=== PATIENT | female | born 1955 | race Two or more races ===

== ENCOUNTER 2020-04-24 12:03 | Inpatient (IN) | payer MEDICARE, MEDICAID ==
[~2020-04-24] VITALS: Ht 160 cm; Wt 42.5 kg
--- NOTE | 2020-04-24 13:16 | NUR ---
Pt's family here from [place] looking for pt. After discussion with for Covid symptoms he was cleared to visit w/ for ~ 10 minutes before returning home.
--- NOTE | 2020-04-24 13:37 | NUR ---
, Cesar [phone]. English speaking only.
[2020-04-24] MEDS ORDERED: ipratropium/albuterol 3ml nebule NEB ONE (13:55)
[2020-04-24 14:18] LABS: BASOPHILS % (AUTO) 0.5 % (0-1); EOSINOPHILS % (AUTO) 0.2 % (0-6); HEMATOCRIT 33.8 % (35.0-45.0); HEMOGLOBIN 11.6 g/dl (12.0-16.0); LYMPHOCYTES # (AUTO) 0.4 X10'3 (1.1-4.8); LYMPHOCYTES % (AUTO) 9.8 % (21-51); MEAN CORPUSCULAR HEMOGLOBIN 32.3 PG (27.0-31.0); MEAN CORPUSCULAR HGB CONC 34.2 g/dL (33.0-36.5); MEAN CORPUSCULAR VOLUME 94.2 FL (78-98); MEAN PLATELET VOLUME 6.4 FL (7.4-10.4); MONOCYTES # (AUTO) 0.4 X10'3 (0-0.9); NEUTROPHILS # (AUTO) 2.9 X10'3 (1.8-7.7); NEUTROPHILS % (AUTO) 79.5 % (42-75); PLATELET COUNT 143 X10'3 (140-440); RED BLOOD COUNT 3.59 X10'6 (4.20-5.60); WHITE BLOOD COUNT 3.7 X10'3 (4.5-11.0)
[2020-04-24 14:32] LABS: ALANINE AMINOTRANSFERASE 27 U/L (12-78); ALBUMIN 2.6 G/DL (3.4-5.0); ALBUMIN/GLOBULIN RATIO 0.8 (1.1-1.5); ALKALINE PHOSPHATASE 89 IU/L (46-116); ANION GAP 10 (8-16); ASPARTATE AMINO TRANSFERASE 94 U/L (10-37); BILIRUBIN,TOTAL 0.7 MG/DL (0.1-1.0); BLOOD UREA NITROGEN 9 MG/DL (7-18); BUN/CREATININE RATIO 13.8 (6.6-38.0); CALCIUM 7.9 MG/DL (8.5-10.1); CHLORIDE 86 MMOL/L (99-107); CREATININE 0.65 MG/DL (0.40-0.90); GLUCOSE 98 MG/DL (70-104); POTASSIUM 4.1 MMOL/L (3.5-5.1); TOTAL CARBON DIOXIDE 22.9 MMOL/L (24-32); TOTAL PROTEIN 5.9 G/DL (6.4-8.2); eGFR > 90 ML/MIN
[2020-04-24 14:34] LABS: SODIUM 119 MMOL/L (135-145)
[2020-04-24] MEDS ORDERED: magnesium 2GM in 50ml NS 50 ML IV PRN (15:55)
[2020-04-24] MEDS ORDERED: ipratropium/albuterol 3ml nebule NEB PRN (15:55)
[2020-04-24] MEDS ORDERED: dextrose 50%-water 50ml dispensing syringe IV PRN ×2 (15:55)
[2020-04-24] MEDS ORDERED: MESSAGE TO PHARMACY PO ONE (15:55)
[2020-04-24] MEDS ORDERED: potassium CL 10mEq/100ml bag 100 ML IV PRN ×2 (15:55)
[2020-04-24] MEDS ORDERED: ondansetron/PF 4mg/2ml inj IV PRN (15:55)
[2020-04-24] MEDS ORDERED: magnesium hydroxide 30ml (MOM) UD suspension PO PRN (15:55)
[2020-04-24] MEDS ORDERED: magnesium 4gm in 100ml NS 100 ML IV PRN (15:55)
[2020-04-24] MEDS ORDERED: dextrose ORAL solution 15 GM/59 ML bottle PO PRN ×2 (15:55)
[2020-04-24] MEDS ORDERED: acetaminophen 325mg tablet PO PRN (15:55)
[2020-04-24] MEDS ORDERED: insulin Lispro (HumaLOG) vial - multi-dose SQ SCH (15:55)
[2020-04-24] MEDS ORDERED: glucagon, human recombinant 1mg kit SUBCUT PRN (15:55)
[2020-04-24] MEDS ORDERED: potassium Cl 20 mEq SR tablet PO PRN ×2 (15:55)
[2020-04-24] MEDS ORDERED: HYDR-4383 PO (16:22)
[2020-04-24] MEDS ORDERED: METF-900 PO (16:22)
[2020-04-24] MEDS ORDERED: ONDA-103 PO (16:22)
[2020-04-24] MEDS ORDERED: ALBU18HF2 INH (16:22)
[2020-04-24] MEDS ORDERED: iohexol 350MG/ML 100ml bottle IV ONE (16:31)
[2020-04-24 16:32] LABS: HEMOGLOBIN A1C 5.9 % (4.5-6.2)
--- NOTE | 2020-04-24 17:00 | NUR ---
PLACED CALL TO DR VIVAR RE: UNABLE TO OBTAIN PIV ACCESS. DR. VIVAR REQUESTED TO HAVE ER MD PLACE CENTRAL LINE.
[2020-04-24] MEDS ORDERED: METF-950 PO (17:44)
[2020-04-24] MEDS: heparin, porcine 5000 units/ml vial SQ SCH ×2 (17:59→23:45)
[2020-04-24 19:30] VITALS: BP 121/62
--- NOTE | 2020-04-24 19:40 | NUR ---
pt states she is too short of breath and tired to answer DART questions.
[2020-04-24] MEDS: K and/or MAG REPLACEMENT MC SCH (20:05)
[2020-04-24] MEDS: normal saline 1000ml 1,000 ML IV SCH (20:15)
[2020-04-24] MEDS ORDERED: insulin glargine (Lantus) pen - multi-dose SQ SCH (21:00)
--- NOTE | 2020-04-24 21:56 | NUR ---
Page Sent PAGER ID: [phone] MESSAGE: pt [phone] wade Meek [phone] F here for acute resp fail. critical lactic acid of 5.1 pt receiving NS at 100 ml/hr- Jaswinder [id number] Addendum: 04/24/20 at 2200 by Wilfrid Bailey RN Spoke with Dr. Orozco regarding lactic acid level received order to recheck in am.
[2020-04-24 22:00] VITALS: BP 114/71
[2020-04-24] MEDS: ipratropium/albuterol 3ml nebule NEB PRN (22:03)
[2020-04-24] MEDS: piperacillin/tazo 3.375gm/50ml 50 ML IV SCH (23:45)
[2020-04-25] MEDS ORDERED: ipratropium/albuterol 3ml nebule NEB PRN
[2020-04-25] MEDS: HYDROcodone/acetaminophen 5mg/325mg tablet PO PRN ×2 (01:51→11:12)
[2020-04-25 02:00] VITALS: BP 98/63
[2020-04-25] MEDS: normal saline 1000ml 1,000 ML IV SCH ×2 (02:15→12:15)
[2020-04-25] MEDS: ipratropium/albuterol 3ml nebule NEB PRN (02:38)
[2020-04-25 05:50] LABS: BASOPHILS % (AUTO) 0.2 % (0-1); EOSINOPHILS % (AUTO) 0.1 % (0-6); HEMATOCRIT 31.1 % (35.0-45.0); HEMOGLOBIN 10.6 g/dl (12.0-16.0); LYMPHOCYTES # (AUTO) 0.3 X10'3 (1.1-4.8); MEAN CORPUSCULAR VOLUME 94.1 FL (78-98); MEAN PLATELET VOLUME 6.9 FL (7.4-10.4); MONOCYTES # (AUTO) 0.4 X10'3 (0-0.9); MONOCYTES % (AUTO) 8.9 % (2-12); NEUTROPHILS # (AUTO) 3.3 X10'3 (1.8-7.7); NEUTROPHILS % (AUTO) 82.8 % (42-75); PLATELET COUNT 163 X10'3 (140-440); RED CELL DISTRIBUTION WIDTH 20.4 % (11.5-14.5)
[2020-04-25 06:05] LABS: ALANINE AMINOTRANSFERASE 31 U/L (12-78); ALBUMIN 2.5 G/DL (3.4-5.0); ALBUMIN/GLOBULIN RATIO 0.8 (1.1-1.5); ALKALINE PHOSPHATASE 76 IU/L (46-116); ANION GAP 13 (8-16); ASPARTATE AMINO TRANSFERASE 93 U/L (10-37); BLOOD UREA NITROGEN 10 MG/DL (7-18); BUN/CREATININE RATIO 15.4 (6.6-38.0); CALCIUM 7.8 MG/DL (8.5-10.1); CHLORIDE 87 MMOL/L (99-107); CREATININE 0.65 MG/DL (0.40-0.90); GLUCOSE 108 MG/DL (70-104); MAGNESIUM 1.9 MG/DL (1.5-2.4); SODIUM 122 MMOL/L (135-145); TOTAL CARBON DIOXIDE 22.1 MMOL/L (24-32); TOTAL PROTEIN 5.7 G/DL (6.4-8.2); eGFR > 90 ML/MIN
--- NOTE | 2020-04-25 06:17 | NUR ---
Problems reprioritized. Patient report given, questions answered & plan of care reviewed with Jennifer GARRIDO.
--- NOTE | 2020-04-25 06:31 | NUR ---
Patient in room PCU 3010. I have received report from Jaswinder GARRIDO and had the opportunity to ask questions and assume patient care.
[2020-04-25 07:00] VITALS: BP 89/47
[2020-04-25] MEDS: ipratropium/albuterol 3ml nebule NEB SCH ×3 (07:18→14:48)
[2020-04-25 07:24] LABS: PLATELET ESTIMATE NORMAL; POLYCHROMASIA 1+; TEAR DROP CELLS 1+
[2020-04-25 07:25] LABS: ELLIPTOCYTES FEW
[2020-04-25] MEDS: heparin, porcine 5000 units/ml vial SQ SCH (07:48)
[2020-04-25] MEDS: K and/or MAG REPLACEMENT MC SCH (07:48)
[2020-04-25 08:23] VITALS: BP 102/61
[2020-04-25] MEDS: piperacillin/tazo 3.375gm/50ml 50 ML IV SCH (10:05)
[2020-04-25] MEDS ORDERED: iohexol 350MG/ML 100ml bottle IV ONE (13:05)
--- NOTE | 2020-04-25 13:43 | NUR ---
DM/Severe Malnutrition Consult: A1C less than 7 and not appropriate for DM ed at this time. Pt admit w/ R pleural effusion possible RLL PNA, metastatic breast CA vs pulmonary embolism pending CT, and hyponatremia r/t dehydration per EMR. Current BMI 16.6 though no scaled wt this admit or scaled wt hx. PHILLIP d/w RN who reports pt simply smaller stature and has no visible signs of muscle/fat wasting. Pt has mild weakness, no edema, and appears well-developed and well-nourished per ER note. PHILLIP edmond/w RN regarding scaled wt this admit. PO meals pending at this time as well. At this time pt does not meet minimum malnutrition criteria. PHILLIP did recommend Glucerna TIDWM; DO notified. Addendum: 04/25/20 at [address] Amended: Links added.
--- NOTE | 2020-04-25 16:25 | NUR ---
Patient left [place], Dr. Vargas aware. Central line discontinued, cannula intact. Telemetry discontinued, telephoner notified. All belongings collected and sent with patient. Patient picked up in private vehicle by family, wheeled to lobby by staff.
[2020-04-25] MEDS ORDERED: NUT.TX.GLUC.INTOLER,LAC-FR,SOY (GLUCERNA) 237 ML PO SCH (18:00)
== END 2020-04-25 16:17 | disposition left against medical advice (07) | DRG 193 ==
LOC: ER 12:04 → ED HOLD 15:51 → PCU 3S 19:40
PROVIDERS: ADMIT Family Medicine; ATTEND Family Medicine
PROC: 02HV33Z Insertion of Infusion Device into Superior Vena Cava, Percutaneous Approach (ICD-10-PCS; principal; 2020-04-24)
DX: J18.9 Pneumonia, unspecified organism (principal); J96.00 Acute respiratory failure, unspecified whether with hypoxia or hypercapnia; E43 Unspecified severe protein-calorie malnutrition; C79.9 Secondary malignant neoplasm of unspecified site; E87.1 Hypo-osmolality and hyponatremia; Z68.1 Body mass index [BMI] 19.9 or less, adult; J91.0 Malignant pleural effusion; Z53.29 Procedure and treatment not carried out because of patient's decision for other reasons; D72.819 Decreased white blood cell count, unspecified; C50.919 Malignant neoplasm of unspecified site of unspecified female breast; E11.9 Type 2 diabetes mellitus without complications; Z87.01 Personal history of pneumonia (recurrent); Z90.710 Acquired absence of both cervix and uterus
CPT/HCPCS: 36415; 71045; 80053; 83036; 83605; 83735; 85008; 85025; 87040; 94640; 94760; 99285; G0378; J1644; J1815; J2543; J7030; Q9967